=== PATIENT | male | born 1950 | race Caucasian/White ===

== ENCOUNTER 2024-01-19 10:10 | Emergency (ER) | payer OTHER, SELFPAY ==
[2024-01-19 10:14] VITALS: BP 123/93
[2024-01-19 11:22] VITALS: BMI 26.0
--- NOTE | 2024-01-19 12:12 | ED.GENMED ---
History of Present Illness
General
Chief Complaint: Catheter/Tube Problem
Source: patient
Time Seen by Provider: 01/19/24 12:00
Travel History
Have you had any contact with someone who has COVID-19?: No
Do you have any symptoms of coronavirus? Fever > 100 degrees, chills, cough, shortness of breath, sore throat, loss of taste or smell, muscle aches, or headache?: No
History of Present Illness
History of Present Illness:
73-year-old male with past medical history of diverticulitis status post abscess formation and percutaneous drain placement within the right lower abdomen/groin about 4 weeks ago, done at [facility] in [place] presenting to the emergency
department here today for evaluation after last night he believes he may have accidentally pulled the drain after noticing some bloody drainage from the drain insertion site earlier this morning. Notes that the bleeding has subsided but due to some
discomfort in the area decided come to the ER for further evaluation. Patient notes he transitioned his care to this facility and is following with colorectal surgeon, Amanuel Bright, was seen by Dr. Bright about 2 weeks ago and everything with the
drain was going well although he did note that the drain needed to remain in place because there was still some minor leaking. He has a scheduled appointment with interventional radiology here this coming Saturday for a tube check and a follow-up
with Dr. Bright after this. Patient notes that he completed a course of antibiotics a few weeks ago. He denies any fevers, chills, rigors, nausea, vomiting or any other concerns. He does note since the drain has been placed he has had discomfort
to the area but states this past /Saturday the discomfort seem to get a little bit worse.
Past History
Past History
ED Past Medical History: Hypercholesterolemia, Hypothyroidism and Other (Diverticulitis, diverticulosis)
ED Past Surgical History: Bowel resection and Tonsilectomy
Social History
Tobacco: Non-smoker
Alcohol: Occasional
Drug: None
Personal: Single
Living: alone
Review of Systems
Review of Systems
All Other Systems: ROS reviewed and negative except as documented in HPI and ROS
Phy Exam
Physical Exam
Physical Exam:
GENERAL: Alert , in no apparent distress, smiling and pleasant
EYE: clear conjunctiva b/l
HEAD: NCAT
ENT: o/p clr, mmm.
ABDOMEN: Soft, without focal tenderness, no r/g, no cvat, percutaneous drain in place to the right lower quadrant/groin. There is a dressing in place with very small dried blood underneath the dressing pad. No active bleeding. There is very mild
erythema at the drain incision site with some mild tenderness but no overlying warmth or active drainage.
NEUROLOGICAL: Alert and oriented
SKIN: Warm and dry, skin intact.
MUSCULOSKELETAL: No edema, well perfused.
PSYCH: Normal and appropriate interaction.
Scores
Heart Failure Risk
Heart Failure Risk Score: Not Applicable
Heart Score for Chest Pain Patients
STEMI patient?: Not applicable
Withdrawal Assessment of Alcohol
Withdrawal Assessment Completed?: Not applicable
Course
Vital Signs
Initial and Last Documented VS:
Initial Vital Signs
Temp Pulse Resp BP Pulse Ox
98.2 F 87 16 123/93 94
01/19/24 10:14 01/19/24 10:14 01/19/24 10:14 01/19/24 10:14 01/19/24 10:14
Last Documented Vital Signs
Temp Pulse Resp BP Pulse Ox
98.1 F 81 20 123/93 83
01/19/24 11:28 01/19/24 11:28 01/19/24 11:28 01/19/24 10:14 01/19/24 11:28
Registered Dietetic Technician consulted with Physician
Registered Dietetic Technician consulted with physician?: Yes
Name of Physician Consulted: Warren
MDM/Problems Addressed
Differential Diagnosis Includes:
Accidental removal of percutaneous drain, postprocedural pain, postprocedural infection, device malfunction
MDM/Problems Addressed:
73-year-old male present emergency room for evaluation of his percutaneous drain that he had placed 4 weeks ago at an outside facility due to a diverticular abscess. Patient believes he may have accidentally pulled on the drain last night and
noticed some bleeding/oozing from the drain insertion site this morning, seems to have fully resolved although still noting some discomfort. There is a suture in place holding the drain in and when the drain is pulled up on the catheter insertion
remains intact and unable to be removed. There is no longer any drainage. There was some mild erythema noted however I suspect this is more inflammatory as opposed to infectious. There is still very small drainage within the catheter bag.
Overall there does not appear to be any emergent pathologies ongoing. I did advise patient if he has any other concerns to contact his IR team and Dr. Bright tomorrow morning. Also advised patient on return precautions to the emergency department
including worsening pain, fevers or any other concerns he may have. Patient is happy and agreeable with this plan.
*Pulse Oximetry
Patient hypoxic: no
*Critical Care Note
Total Time (30-74mins, 75-104mins- exclusive of procedures): Not Applicable
ED Attending Note
-
Portions of this chart may have been created with voice recognition software.� Occasional wrong word or��sound alike� substitutions may have occurred due to the inherent limitations of voice recognition software.
Discharge Plan
Departure
Patient Disposition: Home (Routine Discharge)
Date of Disposition: 01/19/24
Time of Disposition: 12:12
Patient with high blood pressure during this ER visit?: No
Discharge Problem:
Encounter for fitting and adjustment of non-vascular catheter NEC
Instructions: Abscess Drainage, Percutaneous (Fluoroscopic, Ultrasonic, or CT Guidance)
Referrals:
Kelly Green MD [Family Provider] -
Amanuel Bright MD [Active] -
Interventions
Interventions:
*Risk Screen - Suicide Last Done: 01/19/24 11:24
*General Assessment Last Done: 01/19/24 11:23
*Neglect/Abuse Screening Last Done: 01/19/24 11:24
*ED COVID-19 Vaccine History Last Done: 01/19/24 11:23
RN-Qpyssl-Greocnbgqc Assessment Last Done: 01/19/24 11:24
ED-Male Genitourinary Assessment Last Done: 01/19/24 11:24
== END 2024-01-19 12:20 | disposition home or self-care (01) ==
LOC: EMR 10:10
PROVIDERS: EMERGENCY PHYSICIAN Emergency Medicine; FAMILY PHYSICIAN Family Medicine
DX: Z46.82 Encounter for fitting and adjustment of non-vascular catheter (principal); E78.00 Pure hypercholesterolemia, unspecified; E03.9 Hypothyroidism, unspecified
CPT/HCPCS: 99282

== ENCOUNTER → 2024-01-24 08:00 | Outpatient (REF) | payer OTHER, SELFPAY ==
[2024-01-24 08:30] VITALS: BP 142/77; BP_SYST 67
== END ==
LOC: RADI 08:00
PROVIDERS: ATTENDING PHYSICIAN Surgery; FAMILY PHYSICIAN Family Medicine
DX: Z46.82 Encounter for fitting and adjustment of non-vascular catheter (principal); K57.20 Diverticulitis of large intestine with perforation and abscess without bleeding
CPT/HCPCS: 49423; 75984; C1729; C1769

== ENCOUNTER 2024-02-17 13:43 | Day surgery (SDC) | payer OTHER, SELFPAY ==
[2024-02-17 13:05] VITALS: BMI 28.3
[2024-02-17 13:11] VITALS: BMI 28.3
[2024-02-17 13:12] VITALS: BP 152/99
[2024-02-17 14:50] VITALS: BP 106/78
[2024-02-17 15:00] VITALS: BP 112/89
[2024-02-17 15:15] VITALS: BP 123/99
== END 2024-02-17 15:30 | disposition home or self-care (01) ==
LOC: SDS 13:43
PROVIDERS: ATTENDING PHYSICIAN Surgery
DX: Z12.11 Encounter for screening for malignant neoplasm of colon (principal); K63.89 Other specified diseases of intestine; K57.30 Diverticulosis of large intestine without perforation or abscess without bleeding; K63.5 Polyp of colon
CPT/HCPCS: 45380; 88305

== ENCOUNTER → 2024-02-25 19:02 | Outpatient (REF) | payer OTHER, SELFPAY ==
[2024-02-28 02:45] LABS: HPV, High Risk Not Detected; HPV, High Risk Source Anal
== END ==
LOC: CLAB 19:02
PROVIDERS: ATTENDING PHYSICIAN Surgery
DX: Z86.19 Personal history of other infectious and parasitic diseases (principal)
CPT/HCPCS: 87624; 88112

== ENCOUNTER → 2024-03-19 07:56 | Outpatient (REF) | payer OTHER, SELFPAY | LOC: RAD 07:56 | PROVIDERS: ATTENDING PHYSICIAN Surgery; FAMILY PHYSICIAN Family Medicine | DX: K57.92 Diverticulitis of intestine, part unspecified, without perforation or abscess without bleeding (principal) | CPT/HCPCS: 74177; Q9967 ==

== ENCOUNTER 2024-03-31 06:02 | Inpatient (IN) | payer OTHER, SELFPAY ==
[2024-03-23 08:44] VITALS: BMI 25.1
[2024-03-23 10:06] LABS: Hematocrit 48.7 % (39.0-52.0); Hemoglobin 16.5 g/dL (13.0-18.0); Mean Corp Hgb Conc. 33.9 g/dL (33.0-37.0); Mean Corpuscular Hgb 29.9 pg (27.0-31.0); Mean Corpuscular Volume 88.4 fL (80.0-94.0); Mean Platelet Volume 8.7 fL (7.4-10.4); Platelet Count 354 10^3/uL (130-400); Red Blood Cell Count 5.51 10^6/uL (4.70-6.10); Red Cell Dist. Width 13.3 % (11.5-14.5); White Blood Cell Count 6.1 10^3/uL (4.8-10.8)
[2024-03-23 10:18] LABS: INR 0.99; PT 12.9 Sec (11.4-14.6)
[2024-03-23 10:19] LABS: APTT 27.4 Sec (23.4-35.0)
[2024-03-23 10:30] LABS: ALT (SGPT) 46 U/L (0-50); AST (SGOT) 39 U/L (17-59); Albumin 4.6 g/dl (3.5-5.0); Alkaline Phosphatase 72 U/L (38-126); Blood Urea Nitrogen 19 mg/dl (9-20); Calcium 10.1 mg/dl (8.4-10.2); Carbon Dioxide 26 mmol/L (22-30); Chloride 103 mmol/L (98-107); Estimated Creatinine Clearance 78 ml/min; Glucose 100 mg/dl (70-99); Sodium 139 mmol/L (135-145); Total Bilirubin 0.7 mg/dl (0.2-1.3); Total Protein 7.7 g/dl (6.3-8.2); eGFR > 60.00
[2024-03-23 11:23] LABS: Glycohemoglobin (HgbA1c) 5.4 % (4.0-5.6)
[2024-03-31] VITALS (7 sets, daily range): BP systolic 109–138; BP diastolic 78–96; BMI 25.1
[2024-03-31] MEDS: TYLENOL 1000 MG PO (09:44)
[2024-03-31] MEDS: CELEBREX 200 MG PO (09:44)
[2024-03-31] MEDS: LYRICA 150 MG PO (09:44)
[2024-03-31] MEDS: NORMOSOL-R 1000 IV ×2 (09:44→23:14)
[2024-03-31] MEDS: ENTEREG 12 MG PO (09:44)
[2024-03-31] MEDS: HEPARIN 5000 UNITS SC (10:01)
--- NOTE | 2024-03-31 22:19 | W.IMMPOSTOP ---
Surgical Immed Post Op Note
-
Primary Surgeon: Amanuel Bright MD
Assisting Surgeon: ELIZABETH Steen
Pre-op Diagnosis: recurrent diverticulitis, ventral hernia x2, incisional (umbilical) hernia
Post-op Diagnosis: same
Procedure Performed: Robotic redo sigmoidectomy, splenic flexure takedown mesenteric angiography with ICG, lysis of adhesions greater than 3 hours, flexible sigmoidoscopy, small bowel resection, ventral hernia repair x 2, umbilical hernia repair,
laparoscopic tap block;
Anesthesia Type: General
Specimen / Cultures: Sigmoid, small bowel resection
Estimated Blood Loss: 150 mL
Complications: None
Operative Findings: Entered abdomen with Veress technique at [facility], had a umbilical hernia and to left lower quadrant anterior abdominal wall hernias with omentum incarcerated; omentum was reduced successfully; multiple loops of small bowel
densely adherent to the sigmoid and pelvis; performed arduous lysis of adhesions; loop of ileum densely adherent in the right lower quadrant/right pelvic brim associated with a small abscess; took down lateral attachments from the sigmoid to the
left pelvic brim and left paracolic gutter; the loop that was densely adherent to the abscess did not appear healthy by the time it was completely free, so I tagged this with a 2-0 Vicryl suture for SBR later; attempted to perform a medial to
lateral dissection, however, the planes were significantly distorted due to his previous operation; identified a posterior plane and started to take this towards the sacral promontory, however, made a colotomy in the distal sigmoid; started
dissecting down the right lateral aspect of the pelvis and was able to identify the correct presacral plane and took this down beyond the sacral promontory; had some mild bleeding at this point that was controlled with a Ray-Jay gauze and pressure;
identified the right ureter with ICG and kept this safe from our dissection; continued our rectal mobilization anteriorly down to the anterior flexion; identified gaurang in the rectum from his previous surgery; Dr. Chao performed a flexible
sigmoidoscopy and identified the previous anastomosis at about 17 cm, which was congruent with the visible gaurang; mobilized the left lateral aspect of the rectosigmoid; dense adhesions and scar were discovered, including two clips from a previous
surgery; identified the left ureter with firefly and kept it safe from our dissection; passed sizers and identified our transection point just distal to his previous anastomosis; cleaned up the mesorectum with the vessel sealer, upsized to the RLQ
port to a 12 and stapled and divided with a green load; then performed a splenic flexure takedown and a lateral to medial fashion; adequate reach was confirmed; perfusion was confirmed with firefly and ICG, and then performed a intracorporeal
stapled EEA anastomosis; donuts intact, leak test negative and anastomosis intact on flexible sigmoidoscopy; oversewed the anterior aspect of the anastomosis with 2-0 Vicryl's; repaired the 2 left lower quadrant anterior abdominal wall hernias with
running O V-lock suture; closed the RLQ port with a Fredo Caldwell; then, extracorporealized the loop of small bowel through the umbilical incision and performed a small bowel resection with [id number] stapled anastomosis; closed the mesenteric
defect with 2-0 Vicryl and a crotch stitch with 2-0 Vicryl; performed a laparoscopic tap block; closed to the umbilical hernia with 0 PDS; closed the skin incisions with 4 Monocryl
[2024-03-31 23:15] LABS: % Basophils 0.2 % (0-2); % Immature Granulocytes 0.4 % (0-0.5); % Lymphocytes 4.9 % (20.5-51.1); % Monocytes 5.1 % (1.7-9.3); % Neutrophils 89.4 % (42.2-75.2); Absolute Immature Granulocytes 0.1 10^3/uL (0-0.05); Absolute Lymphocytes 0.6 10^3/uL (1.2-3.4); Absolute Monocytes 0.6 10^3/uL (0.1-0.6); Absolute Neutrophils 11.2 10^3/uL (1.4-6.5); Hematocrit 40.7 % (39.0-52.0); Mean Corp Hgb Conc. 34.4 g/dL (33.0-37.0); Mean Corpuscular Hgb 30.1 pg (27.0-31.0); Mean Corpuscular Volume 87.5 fL (80.0-94.0); Mean Platelet Volume 8.2 fL (7.4-10.4); Nucleated Red Blood Cells % 0 % (-); Platelet Count 275 10^3/uL (130-400); Red Blood Cell Count 4.65 10^6/uL (4.70-6.10); Red Cell Dist. Width 13.8 % (11.5-14.5); White Blood Cell Count 12.5 10^3/uL (4.8-10.8)
[2024-03-31 23:30] LABS: Blood Urea Nitrogen 22 mg/dl (9-20); Calcium 7.5 mg/dl (8.4-10.2); Carbon Dioxide 20 mmol/L (22-30); Chloride 103 mmol/L (98-107); Estimated Creatinine Clearance 64 ml/min; Glucose 158 mg/dl (70-99); Potassium 4.5 mmol/L (3.5-5.1); Sodium 132 mmol/L (135-145); eGFR > 60.00
--- NOTE | 2024-03-31 23:35 | OR.RPT ---
Operative Report
Operative Report
DATE OF OPERATION: 03/31/2024
SURGEON: Amanuel Bright MD
PREOPERATIVE DIAGNOSIS: Recurrent diverticulitis, left lower quadrant ventral hernia x 2, incisional umbilical hernia
POSTOPERATIVE DIAGNOSIS: Same
OPERATION: Robotic sigmoidectomy, take-down of the splenic flexure, adhesiolysis greater than 3 hours, small bowel resection, mesenteric angiography with ICG, flexible sigmoidoscopy, ventral hernia repair x 2, incisional umbilical hernia repair,
laparoscopic TAP block; preoperative cystoscopy with bilateral ureteral stents by Dr. Vargas
ASSISTANTS:
1. Jimenez Chao MD
2. ELIZABETH Steen
ANESTHESIA: General
ESTIMATED BLOOD LOSS: 150 mL
IVF: 4.5 L
URINE OUTPUT: 400 mL
FINDINGS:
1. 2 ventral hernias and 1 incisional umbilical hernia with incarcerated omentum; omentum reduced and hernias was repaired primarily
2. Densely adherent loop of small bowel to small right pelvic brim abscess; performed small bowel resection of this loop, about 30 cm in length
4. Resected about 10 to 12 cm of sigmoid, transected proximally on healthy colon and transected distal to previous anastomosis
3. Performed intracorporeal stapled EEA anastomosis without tension; good perfusion on firefly, donuts intact, leak test negative, anastomosis examined with flexible sigmoidoscopy
SPECIMENS:
1. Sigmoid
2. Small bowel resection
DRAINS: None
COMPLICATIONS: No immediate complications.
INDICATIONS: The patient is a 73-year-old male who was diagnosed with diverticulitis with abscess and treated with IV antibiotics and IR guided drainage, all at an outside hospital. Since then, he recovered well. After a couple of drain studies,
there was no fistula and the IR drain was removed. A repeat CT scan was done which did show residual abscess in the right pelvis as well as a large bladder diverticulum. He has had diverticulitis in the past. After discussion of about the risks
and benefits of operative versus nonoperative management, the patient elected to move forward with a reexcision of the remaining sigmoid colon to decrease the risk of another complicated episode. The operation was discussed with the patient in
detail, including the risks, benefits and alternatives. Risks described included, but not limited to, bleeding, infection, anastomotic leak, damage to nearby structures (i.e.- ureter, bowel, solid organs, including the bladder diverticulum),
incisional hernia, need for ostomy creation, conversion to open, recurrence of diverticulitis, genital and urinary dysfunction, and anesthetic risks. The patient understood and agreed to proceed.
PROCEDURE IN DETAIL: The patient was taken to the operating room and placed on the operating table in supine position. Sequential compression devices were placed bilaterally. General anesthesia was then induced and the patient was intubated without
complication. The patient was then placed in lithotomy position with both arms tucked. The abdomen was then shaved, prepped and draped in a sterile fashion. A time-out was then performed verifying the correct patient, procedure, operative site,
positioning, and special equipment. Urology performed a cystoscopy, placed bilateral ureteral stents, injected each ureter with 2.5mL of ICG and placed a Mcdonough. Anesthesia placed an orogastric tube. Preoperative antibiotics were given. A marking
pen was used to omar out the midline.
An 8 mm incision at Allen's point was made with an 11 blade scalpel. A Veress needle was used to gain abdominal access. After 3 clicks, the insufflation was connected to the Veress needle and the opening pressure was noted to be less than 8 mmHg.
The abdomen was then insufflated to a pressure of 12 mmHg. An 8 mm robotic trocar was then inserted. The robotic camera was advanced and intra-abdominal placement was confirmed. The abdomen was examined. No injuries were noted from port entry or
from the Veress needle. Immediately noted was a ventral hernia at the umbilicus as well as a ventral hernia in the left lower quadrant. A significant amount of omentum was incarcerated in the hernias. The remaining three 8mm robotic ports were
placed under direct visualization in a diagonal fashion from Allen's point to the right lower quadrant, as well as an 8mm assist port in the right lateral mid abdomen, taking care to avoid injury to the right epigastric vessels. The left upper
quadrant port was changed to the air seal port. Then, the patient was placed in 24 degrees Trendelenburg and 10 degrees [id number]. The robot was docked from the patient's right side. From the RLQ to Allen's point, the instruments introduced
were the bipolar grasper, camera, scissors and tip up grasper, respectively.
I began by reducing the omentum from the umbilical hernia and the LLQ ventral hernia. Once the omentum was completely reduced, it was evaluated for hemostasis, which was confirmed. There were 2 fascial defects in the LLQ that were adjacent to each
other, each about 1.5 x 1.5 cm. The fascial defect at the umbilicus was 2 x 2 cm. I decided that I would address the hernias at the end of the case and proceeded. There were densely adherent loops of small bowel at the opening of the pelvis.
With meticulous dissection, I lysed the adhesions from the small bowel to the pelvic brim. I encountered a small abscess cavity at the right pelvic brim which released 2 to 3 cc of purulent fluid. The small bowel that was adjacent to this abscess
did not appear healthy. Because of the inflammation and fibrinous rind, it was difficult to assess whether any true bowel wall injuries occurred. Therefore, I tagged this loop with a 2-0 Vicryl stitch for a small bowel resection later on. Once
all of the small bowel was free from the pelvis, it was swept into the RUQ. I then began taking down adhesions from the sigmoid to the left pelvic wall and LLQ. I mobilized this until I was able to see the left ureter via firefly, which I kept
safe from my dissection. I continued this dissection towards the pelvis along the left pelvic wall. I then grasped the sigmoid with my tip ups and elevated it in order to attempt a medial to lateral dissection. The planes were significantly
distorted due to the previous sigmoidectomy he had had. I identified a plane in the mesorectum and started to take this posteriorly towards the sacral promontory. However, during this part of the dissection, I created a colotomy in the
rectosigmoid colon, confirming that this was the incorrect plane. I then scored the peritoneum overlying the right pelvic brim in order to enter the pelvis from the right side. I was easily able to identify the right ureter with firefly and kept
this safe from my dissection. After dissecting into the pelvis from the right side, I was able to identify the correct presacral plane and took this down past the sacral promontory in the TME plane. I began to take my dissection to the left side
of the pelvis. I was able to identify the left ureter with firefly. I did encounter some bleeding that was close to the left ureter. Therefore, I introduced a Ray-Jay and packed this portion to control the bleeding.I continued this dissection up
the right side of the pelvis towards the anterior aspect. I was able to free up adhesions anteriorly and identify the anterior reflection. Additionally, I was able to identify gaurang from the serosal side of the rectum, confirming the location of
the prior colorectal anastomosis. I looked back at the bleeding on the left side of the pelvis by removing the Ray-Jay and the bleeding had completely stopped. I continued this dissection and was able to identify the correct plane that I had
started laterally. There was dense scar tissue in this area and to hemostatic clips were discovered, likely from his sigmoidectomy 20 years ago.
At this point, my partner, Dr. Chao, performed a flexible sigmoidoscopy and and we confirmed the previous anastomosis to be at the level of the gaurang that are seen on the serosal aspect of the rectosigmoid, which measured about 17 cm from the
anal verge. Dr. Chao then passed EEA sizers in progressively increasing sizes, and the rectum easily accommodated the largest sizer. I dissected a point 1 to 2 cm distal from the prior anastomosis and divided the mesorectum with the vessel
sealer. My retail assistant, Orlando, then upsized the RUQ port to the 12 mm robotic port. I divided the rectum about 2 cm distal to the previous colorectal anastomosis using the green load of the 60 mm robotic stapler. I retracted the sigmoid colon out
of the pelvis. There was no clear SUREKHA pedicle, which means that the SUREKHA was likely taken at the previous surgery. I then turned my attention to taking down the splenic flexure. Due to the scar tissue to the retroperitoneum, I opted for a lateral
to medial splenic flexure takedown. The sigmoid was grasped and retracted towards the right side. The lateral attachments and retroperitoneal attachments were taken down to the level of the splenic flexure. Once I was no longer able to make
progress from this angle, I turned towards the transverse colon. I grasped and retracted the transverse colon caudad and elevated the omentum superiorly. I divided the gastrocolic ligament and entered the lesser sac at the midline of the
transverse colon. I continued taking down the gastrocolic ligament towards the splenic flexure and took down the congenital attachments and the lesser sac. The posterior wall of the stomach was identified and protected. The superior aspect of the
pancreas was also identified and protected. These attachments were taken down to the level of my lateral dissection. There were omental attachments to the mid descending colon, which I also divided with the vessel sealer. At this point, the
splenic flexure was completely mobilized.
For my proximal transection point, I assessed the sigmoid and distal descending colon. There was inflammation and thickening of the sigmoid to a distance of about 6-7 cm from my distal transection point. Therefore, I selected a point about 10 cm
proximal. I elevated the colon at this point with my tip up grasper and divided the mesentery starting medial to my proposed transection point. I then asked anesthesia to inject ICG. My proposed transection point and future colorectal anastomosis
was well-perfused. I elected to proceed with an intracorporeal end-to-end stapled anastomosis with EEA stapler. Orlando made an incision over the umbilical hernia and placed a small wound Francois with a port cap in order to drop the anvil
intracorporeally. Then, a colotomy in the devascularized segment of the sigmoid colon was created using the robotic scissors at a point distal to our proposed proximal transection point. The anvil with a long Prolene suture attached at the tip was
then carefully passed through the colotomy and advanced proximally up the descending colon, with the long Prolene remaining outside of the colon. The colotomy was then closed around the Prolene stitch using a V-Loc running stitch. The robotic
stapler with a blue load was then used to staple and divide the descending colon at our proposed transection point where adequate perfusion was noted on firefly. The specimen was then placed in the left upper quadrant. The Prolene attached to the
anvil was grasped and pulled through the staple line after removing a few gaurang. Unfortunately, before the anvil was pulled through the hole in our staple line, the tip of the anvil disconnected and the anvil fell back into the colon. The tip of
the anvil was passed off. My retail assistant, Orlando, identified the edge of the anvil and milked it forward. I was then able to visualize the tip of the anvil through my staple line hole and grasped this using my suture cut instrument. I pulled the
anvil through the hole in the staple line, which was slightly enlarged while trying to visualize the tip of the anvil. Therefore, I placed 2 interrupted 2-0 Vicryl stitches along the staple line in order to close the staple line hole around the
post of the anvil. I grasped and elevated the anvil and cleaned up the staple line from intervening mesentery and fat. The anvil was seated along the staple line nicely without intervening diverticula or mesentery.
I checked the reach of the proposed anastomosis once more and it was adequate. The operative field was surveyed and hemostasis was ensured. I then had the carbon cutter inflate the bladder with 200 cc of saline to ensure no injury to the bladder or
bladder diverticulum. When the bladder was completely distended, no obvious leak of saline was noted with regular visualization or with firefly. The bladder was allowed to empty. The EEA stapler was passed transanally to the distal staple line.
The pin was extended and was connected with the anvil. After ensuring there was no twist to the mesentery and there was no tension, the EEA stapler was then closed for 1 minute and then fired. Both donuts were intact. A leak test was performed by
filling the pelvis with saline, occluding the proximal lumen and insufflating with the flexible sigmoidoscope, controlled by Dr. Chao. There was no evidence of leak from the anastomosis. Endoscopically, the anastomosis was intact without evidence
of bleeding. The colorectum was desufflated and the flexible sigmoidoscope removed. The anterior aspect of the anastomosis was oversewn with interrupted Lemberts using 2-0 Vicryl's.
At this point, I repaired both of the LLQ hernias with a running 0 v-lock suture. I closed both hernia defects by starting at 1 corner, sewing the hernia defect closed to the other corner, and then securing it by running the stitch back to the
initial corner. I elected to not place mesh in this wound class II case. Then, I had my retail assistant put a locking grasper on the loop of injured small bowel, and another locking grasper on the specimen. The robotic instruments were removed and the
robot was undocked. The Francois cap was removed. The specimen was removed and then the small bowel was eviscerated through our umbilical incision. A small bowel resection was then performed extracorporeally. The injured area of the small bowel,,
which was the area is densely adherent to the pelvic abscess, involved 2 separate points about 25 cm apart. Therefore, 30 cm of small bowel were removed. I created holes at the mesenteric aspect of our proposed transection sites. I then used the
LigaSure to divide the mesentery, connecting each hole and staying close to the bowel. I stapled and divided each a loop of small bowel with the 80 mm SHELLEY stapler. I grasped the corners of each staple line, cut these off with curved Hayes scissors,
and inserted each and of the SHELLEY stapler. The antimesenteric aspect of the small bowel was aligned and the stapler was clamped and fired to create our common channel. The common channel was evaluated and hemostasis was confirmed. The common
enterotomy was then aligned with Allis clamps and stapled and divided with a TA stapler, using a curved Hayes's to remove the excess. The TA staple line was evaluated and hemostasis was confirmed. A crotch stitch with 2-0 Vicryl was placed.
Well-perfused. The hole in the mesentery was closed with 2-0 Vicryl in a running fashion. Only about half of the hole in the mesentery was able to be closed due to the significant thickening of the mesentery. Therefore, the remainder of the hole
of the mesentery was closed with simple interrupted 2-0 Vicryl's. The anastomosis was then reduced. The abdomen was then reinsufflated and a laparoscopic tap block was performed using a total of 30 mL of 0.25% Marcaine mixed with dexamethasone and
injecting in the transverse abdominis plane bilaterally. The right lower quadrant 12mm port was closed with a Fredo-Caldwell and an 0-vicryl. The remaining ports were removed under direct visualization and no bleeding was noted. The midline
umbilical hernia was then closed with 0 PDS in a running fashion. The incisions were then irrigated. The skin incisions were closed with 4-0 Monocryl in a subcuticular running fashion. Another 30 cc of 0.25% Marcaine mixed with dexamethasone were
injected around the incisions. The incisions were dressed with Dermabond.
At this point, the procedure was complete. The patient was awoken and extubated without complication. The right stent was removed, and the left stent and Mcdonough were left in place. All needle, sponge and instrument counts were reported as correct.
The patient tolerated the procedure well and was transferred to the recovery room in stable condition.
Of note, Jimenez Chao MD, retail assistant, was necessary during this procedure for exploratory purposes due to the complexity of the case and performing the flexible sigmoidoscopy and handling the EEA stapler. I was present for the entire duration of
the case.
DICTATED BY: Amanuel Bright MD
[2024-04-01] VITALS (11 sets, daily range): BP systolic 108–138; BP diastolic 68–90; O2SAT 94; BMI 26.5; BMI 25.9
[2024-04-01] MEDS: TORADOL 15 MG IV ×5 (00:47→23:15)
[2024-04-01] MEDS: DILAUDID 0.5 MG IV ×2 (02:37→08:00)
--- NOTE | 2024-04-01 05:13 | PTCARENOTE ---
late entry 0015, received patient to floor, admitted in room 2108, placed on tele, oriented to room and floor routines. Call larios within reach. Mcdonough draining bright red, Report from PACU stated MD aware and will cont to watch urine through the
night. pt tolerating ice chips
[2024-04-01] MEDS: TYLENOL 1000 MG PO ×4 (05:22→23:14)
[2024-04-01] MEDS: SYNTHROID 150 MCG PO (05:22)
[2024-04-01 06:14] LABS: % Immature Granulocytes 0.4 % (0-0.5); % Lymphocytes 6.8 % (20.5-51.1); % Monocytes 7.3 % (1.7-9.3); % Neutrophils 85.5 % (42.2-75.2); Absolute Lymphocytes 0.7 10^3/uL (1.2-3.4); Absolute Monocytes 0.8 10^3/uL (0.1-0.6); Absolute Neutrophils 9.3 10^3/uL (1.4-6.5); Hematocrit 40.1 % (39.0-52.0); Hemoglobin 13.4 g/dL (13.0-18.0); Mean Corp Hgb Conc. 33.4 g/dL (33.0-37.0); Mean Corpuscular Hgb 30.2 pg (27.0-31.0); Mean Corpuscular Volume 90.3 fL (80.0-94.0); Mean Platelet Volume 8.7 fL (7.4-10.4); Nucleated Red Blood Cells % 0 % (-); Platelet Count 280 10^3/uL (130-400); Red Blood Cell Count 4.44 10^6/uL (4.70-6.10); Red Cell Dist. Width 13.9 % (11.5-14.5); White Blood Cell Count 10.8 10^3/uL (4.8-10.8)
[2024-04-01 06:50] LABS: Blood Urea Nitrogen 25 mg/dl (9-20); Carbon Dioxide 20 mmol/L (22-30); Chloride 104 mmol/L (98-107); Estimated Creatinine Clearance 56 ml/min; Glucose 121 mg/dl (70-99); Potassium 4.2 mmol/L (3.5-5.1); Sodium 135 mmol/L (135-145); eGFR > 60.00
[2024-04-01] MEDS: ENTEREG 12 MG PO ×2 (08:01→20:32)
[2024-04-01] MEDS: LIPITOR 10 MG PO (08:01)
--- NOTE | 2024-04-01 08:49 | W.PN.CRS1 ---
Today's Communication / Plan
-
Remaining stent removed, keep Mcdonough
Start clears and Lovenox, add p.o. oxycodone
Appreciate hospitalist for prevention of DT
Assessment/Plan
-
73-year-old male with PMH of recurrent diverticulitis, bladder diverticulum, HTN, HLD, hyperkalemia, hypothyroid, mild COPD (71-apph-whey history, quit 1 year ago but admits to a few cigarettes occasionally) who presents for elective sigmoidectomy
POD 1 robotic redo sigmoidectomy with splenic flexure takedown, TREVON, SBR (30 cm), ventral hernia repair x 3, cystoscopy with bilateral ureteral stent placement
AFVSS, UOP 850
� Advance to clear liquids, DC IV fluids
� Pain control with Tylenol and Toradol, Dilaudid as needed, add p.o. oxycodone
� Will start DVT PPx with Lovenox
� Continue Mcdonough, DC'd remaining stent at bedside
� OOB/IS, appreciate PT
� Will consult hospitalist for history of heavy EtOH use
Subjective Data
Subjective Data
Date of Service: April 01, 2024
No overnight events.
Pain controlled.
Denies nausea/vomiting. Tolerating sips.
-flatus -BMs + Mcdonough (urine is dark fruit punch quality)
Pt is now OOB yet.
Objective Data
-
Vital Signs
Temp Pulse Resp BP Pulse Ox
98.3 F 87 18 113/70 95
04/01/24 03:10 04/01/24 03:10 04/01/24 03:10 04/01/24 03:10 04/01/24 03:10
Intake & Output
03/31/24 04/01/24 04/02/24
06:59 06:59 06:59
Intake Total 725 / 725
Output Total 850 / 850
Balance -125 / -125
Intake:
Oral fluids 0 / 0
IV fluids (Total) 725 / 725
Normosol 200 / 200
IV piggybacks 0 / 0
Output:
Urine, Mcdonough 850 / 850
Lab Results
04/01/24 05:17
04/01/24 05:17
Physical Exam
-
General: No Acute Distress and AOx3
HEENT: Grossly Normal
Abdomen: Soft, Non Distended, Tender (Appropriately tender near incisions), No Guarding and No Rebound
Skin: Warm and Dry
Wound: Dressing in Place (With Dermabond)
[2024-04-01 10:04] LABS: Alcohol None Detected
[2024-04-01 10:12] LABS: Amphetamines Negative (Negative); Barbiturates Negative (Negative); Benzodiazepines Negative (Negative); Buprenorphine Negative (Negative); Cocaine Negative (Negative); Methadone Negative (Negative); Phencyclidine Negative (Negative); Tricyclic Antidepressants Negative (Negative)
[2024-04-01 10:13] LABS: Marijuana Positive (Negative); Methamphetamines Positive (Negative); Opiates Positive (Negative)
--- NOTE | 2024-04-01 10:46 | CM ---
Patient seen bedside.
IA completed.
Patient lives with spouse in a 2 story home with 12 step to enter.
Patient independent prior to admission without assistive devices.
Patient drives.
Had VN with [facility] in the past. would like [facility] if needed.
S/p sigmoidectomy
Clears this am.
Denies home care needs.
PCP: Dr Green
Pharmacy: [address]
Plan: home no needs anticiapted.
[2024-04-01 10:49] LABS: Fentanyl, Urine Positive (Negative)
[2024-04-01] MEDS: FOLVITE 1 MG PO (11:06)
[2024-04-01] MEDS: THIAMINE INJECTION 200 MG IV ×2 (11:06→20:33)
--- NOTE | 2024-04-01 11:11 | CON.HOSP ---
Family Physician
-
Family Physician: Kelly Green
Chief Complaint
-
elective sigmoidectomy for recurrent diverticulitis.
History of Present Illness
HPI: 73-year-old male with PMH of recurrent diverticulitis, bladder diverticulum, HTN, HLD, hypothyroidism, COPD ([id number] history, still smokes a few cigarettes occasionally); p/w elective sigmoidectomy for his recurrent diverticulitis.
He underwent robotic redo sigmoidectomy with splenic flexure takedown, TREVON, SBR (30 cm), ventral hernia repair x 3, cystoscopy with bilateral ureteral stent placement on 03/31/24 by CRS.
Hospitalist service was consulted for his h/o alcohol drinking.
Medical History
Past Medical History
Additional Past Medical History:
recurrent diverticulitis, bladder diverticulum, HTN, HLD, hypothyroidism, COPD (04-cktm-avih history, still smokes a few cigarettes occasionally)
Past Surgical History: Reports Other
Additional Past Surgical History:
robotic redo sigmoidectomy with splenic flexure takedown, TREVON, SBR (30 cm), ventral hernia repair x 3, cystoscopy with bilateral ureteral stent placement on 03/31/24 by CRS.
Social History
Tobacco: Former Smoker (quit 1 year ago)
Alcohol: Occasional
Personal:
Living: With Family
Family History
Family History: Reviewed & Not Pertinent
Allergies / Home Medications
Allergies reflects when Allergies were last updated in [facility].
Home Medications with original date entered in [facility]
Allergy/Medication List:
Allergies
Allergy/AdvReac Type Severity Reaction Status Date / Time
Penicillins Allergy Rash Hives Verified 03/31/24 09:33
Home Medications
cholecalciferol (vitamin D3) 25 mcg (1,000 unit) tablet (Vitamin D3) 25 mcg PO DAILY Supplement 03/26/24
levothyroxine 150 mcg tablet 150 mcg PO DAILY Thyroid 03/26/24
metronidazole 500 mg tablet 500 mg PO PRE OP Infection 03/26/24
multivitamin 1 tab PO DAILY Supplement 03/26/24
neomycin 500 mg tablet 500 mg PO PRE OP BOWEL-PREP 03/26/24
simvastatin 20 mg tablet 20 mg PO DAILY High Cholesterol 03/26/24
sodium sul 1.479 gram-potas ch 0.188 gram-magnes sul 0.225 gram tablet (Sutab) 0 tab PO PRE OP BOWEL-PREP 03/26/24
Review of Systems
-
Constitutional: Reports No Symptoms
Physical Exam
Vital Signs
Vital Signs
Temp Pulse Resp BP Pulse Ox
36.5 C 89 12 116/73 95
04/01/24 07:10 04/01/24 07:10 04/01/24 07:10 04/01/24 07:10 04/01/24 07:10
Physical Exam
General: Well Developed, Well Nourished, No Apparent Distress and Comfortable
HEENT: Normocephalic, Moist Mucous Membranes and Atraumatic
Respiratory: Clear and Non Labored Respirations; Negative Accessory Resp Muscle Use
Cardiac: S1/S2 and Regular Rhythm; Negative Murmur or Rub
Rectal: Deferred by Provider
Genito-urinary: Mcdonough Catheter
Musculoskeletal: No Clubbing, No Cyanosis and No Edema
Skin: Negative Rash
Neuro: Awake and Nonfocal/Grossly Intact
Psych: Calm and Intact Judgement
Laboratory Results
-
Laboratory Results
04/01/24 05:17
04/01/24 05:17
PT 12.9 Sec (11.4-14.6) 03/23/24 08:36
INR 0.99 03/23/24 08:36
APTT 27.4 Sec (23.4-35.0) 03/23/24 08:36
Total Bilirubin 0.7 mg/dl (0.2-1.3) 03/23/24 08:36
AST 39 U/L (17-59) 03/23/24 08:36
ALT 46 U/L (0-50) 03/23/24 08:36
Alkaline Phosphatase 72 U/L (38-126) 03/23/24 08:36
Data Reviewed
-
Lab Data: Labs Reviewed
Impression / Plan
-
HPI: 73-year-old male with PMH of recurrent diverticulitis, bladder diverticulum, HTN, HLD, hypothyroidism, COPD (29-[id number]-pcqb history, still smokes a few cigarettes occasionally); p/w elective sigmoidectomy for his recurrent diverticulitis.
He underwent robotic redo sigmoidectomy with splenic flexure takedown, TREVON, SBR (30 cm), ventral hernia repair x 3, cystoscopy with bilateral ureteral stent placement on 03/31/24 by CRS.
Hospitalist service was consulted for his h/o alcohol drinking.
A/P:
# elective sigmoidectomy for recurrent diverticulitis.
Diet advanced to clear liquids, further advancement per CRS
Pain control with Tylenol and Toradol, Dilaudid as needed, added p.o. oxycodone
DVT PPx with Lovenox SQ
Continue Mcdonough, DC'd remaining stent at bedside
PT OT and OOB
# Alcohol drinking
Pt endorses last drink about 1 week ago, was a social drink
UDS noted positive for opiate, fentanyl, methamphetamine, and marijuana
Alcohol level neg
cover with [facility] for withdrawal, although doubt he would go into withdrawal
can start thiamine/folate
# HTN
not on meds at home
BP stable, observe without antihypertensive
# HLD
cont statin
# hypothyroidism
cont BOAT TESTER Synthroid
# COPD, stable
DVT ppx: Lovenox SQ
FC
DW at bedside
DW RN
[2024-04-01] MEDS: NORMOSOL-R IV (13:40)
[2024-04-01] MEDS: LOVENOX 40 MG SC (17:45)
[2024-04-02] MEDS: NORMOSOL-R IV (02:49)
[2024-04-02 04:22] VITALS: BMI 26.2
[2024-04-02 04:23] VITALS: BP 105/77
[2024-04-02] MEDS: TYLENOL 1000 MG PO ×4 (05:24→23:30)
[2024-04-02] MEDS: SYNTHROID 150 MCG PO (05:24)
[2024-04-02] MEDS: TORADOL 15 MG IV ×4 (05:26→23:29)
[2024-04-02 05:46] VITALS: BMI 26.2
[2024-04-02 07:12] VITALS: BP 127/86
[2024-04-02] MEDS: LIPITOR 10 MG PO (07:33)
[2024-04-02] MEDS: ENTEREG 12 MG PO ×2 (07:33→19:55)
[2024-04-02] MEDS: FOLVITE 1 MG PO (07:34)
[2024-04-02] MEDS: THIAMINE INJECTION 200 MG IV ×2 (07:34→19:55)
--- NOTE | 2024-04-02 08:13 | W.PN.CRS1 ---
Today's Communication / Plan
-
regular diet
d/c hebert
Assessment/Plan
-
73-year-old male with PMH of recurrent diverticulitis, bladder diverticulum, HTN, HLD, hyperkalemia, hypothyroid, mild COPD (63-[id number] history, quit 1 year ago but admits to a few cigarettes occasionally) who presents for elective sigmoidectomy
POD #2 robotic redo sigmoidectomy with splenic flexure takedown, TREVON, SBR (30 cm), ventral hernia repair x 3, cystoscopy with bilateral ureteral stent placement
AFVSS, UOP 850
� Advance diet to regular
� Pain control with Tylenol and Toradol, p.o. oxycodone PRN.
� DVT PPx with Lovenox, TEDS/SCDS in place.
� Discontinue hebert
� OOB/IS, appreciate PT
� Appreciate hospitalist
Subjective Data
Procedure
03/21/2024- Robotic redo sigmoidectomy, splenic flexure takedown mesenteric angiography with ICG, lysis of adhesions greater than 3 hours, flexible sigmoidoscopy, small bowel resection, ventral hernia repair x 2, umbilical hernia repair, laparoscopic
tap block
Subjective Data
Date of Service: April 02, 2024
Patient states that he has no nausea or vomiting. He has flatus. He denies bowel movements yet. He feels a little bloated. He has been out of bed. His pain is controlled.
Objective Data
-
Vital Signs
Temp Pulse Resp BP Pulse Ox
97.7 F 72 17 127/86 98
04/02/24 07:12 04/02/24 07:12 04/02/24 07:12 04/02/24 07:12 04/02/24 07:12
Intake & Output
04/01/24 04/02/24 04/03/24
06:59 06:59 06:59
Intake Total 725 / 725 2730 / 2730
Output Total 850 / 850 1600 / 1600
Balance -125 / -125 1130 / 1130
Intake:
Oral fluids 0 / 0 1380 / 1380
IV fluids (Total) 725 / 725 1350 / 1350
Normosol 200 / 200
IV piggybacks 0 / 0
Output:
Urine, Hebert 850 / 850 1600 / 1600
Physical Exam
-
General: No Acute Distress and AOx3
Abdomen: Soft, Distended (mild) and Non Tender
Skin: Warm and Dry
Incision: Clear, Dry, Intact
[2024-04-02 08:19] LABS: Hematocrit 37.8 % (39.0-52.0); Hemoglobin 12.5 g/dL (13.0-18.0); Mean Corp Hgb Conc. 33.1 g/dL (33.0-37.0); Mean Corpuscular Volume 90.6 fL (80.0-94.0); Mean Platelet Volume 8.7 fL (7.4-10.4); Platelet Count 243 10^3/uL (130-400); Red Blood Cell Count 4.17 10^6/uL (4.70-6.10); Red Cell Dist. Width 13.7 % (11.5-14.5); White Blood Cell Count 9.8 10^3/uL (4.8-10.8)
[2024-04-02 08:45] LABS: Blood Urea Nitrogen 25 mg/dl (9-20); Calcium 8.6 mg/dl (8.4-10.2); Carbon Dioxide 28 mmol/L (22-30); Chloride 103 mmol/L (98-107); Estimated Creatinine Clearance 75 ml/min; Glucose 95 mg/dl (70-99); Sodium 136 mmol/L (135-145); eGFR > 60.00
[2024-04-02 11:31] VITALS: BP 131/92
--- NOTE | 2024-04-02 11:33 | W.PN.HOSP.TC ---
Today's Communication/Plan
-
see A/P
Assessment / Plan
Assessment / Plan
HPI: 73-year-old male with PMH of recurrent diverticulitis, bladder diverticulum, HTN, HLD, hypothyroidism, COPD (13-fwfq-yvjr history, still smokes a few cigarettes occasionally); p/w elective sigmoidectomy for his recurrent diverticulitis.
He underwent robotic redo sigmoidectomy with splenic flexure takedown, TREVON, SBR (30 cm), ventral hernia repair x 3, cystoscopy with bilateral ureteral stent placement on 03/31/24 by CRS.
Hospitalist service was consulted for his h/o alcohol drinking.
A/P:
# elective sigmoidectomy for recurrent diverticulitis.
Pt is doing well post op, he has been walking around with his in the hospital hernandez
Diet advanced to regular and pt tolerated well
Pain control with Tylenol and Toradol, p.o. oxycodone PRN.
DVT PPx with Lovenox, TEDS/SCDS in place.
Mcdonough discontinued
# Alcohol drinking
Pt endorses last drink about 1 week ago, was a social drink
UDS noted positive for opiate, fentanyl, methamphetamine, and marijuana
Alcohol level neg
cover with MSAS for withdrawal, although doubt he would go into withdrawal
can start thiamine/folate while inpatient
# HTN
not on meds at home
BP stable without antihypertensive
# HLD
cont statin
# hypothyroidism
cont JEEP [employer]IVER Synthroid
# COPD, stable
DVT ppx: Lovenox SQ
FC
DW RN
Anticipated Discharge: Within 24 hours
Subjective/Interval History
-
Date of Service: April 02, 2024
Objective Data
-
Labs:
Laboratory Results
04/02/24
07:56
WBC 9.8
Hgb 12.5 L
Hct 37.8 L
Plt Count 243
Sodium 136
Potassium 4.0
Chloride 103
Carbon Dioxide 28
BUN 25 H
Creatinine 0.9
Glucose 95
Calcium 8.6
Vital Signs:
Vital Signs
Temp Pulse Resp BP Pulse Ox
36.7 C 76 18 131/92 92
04/02/24 11:31 04/02/24 11:31 04/02/24 11:31 04/02/24 11:31 04/02/24 11:31
I&O
04/01/24 04/02/24 04/03/24
06:59 06:59 06:59
Intake Total 725 / 725 2730 / 2730
Output Total 850 / 850 1600 / 1600
Balance -125 / -125 1130 / 1130
Review of Systems
-
All other systems: Reviewed and negative
Physical Exam
-
General: Well Developed, Well Nourished, No Apparent Distress, Comfortable and Conversant; Negative Respiratory Distress
HEENT: Normocephalic, Atraumatic, Nose Appears Normal and Ears Appear Normal; Negative Oxygen
Respiratory: Clear to Auscultation and Non Labored Respirations; Negative Accessory Resp Muscle Use
Cardiac: Regular Rhythm and S1/S2
GI: Soft, Nontender, Nondistended and Normal Bowel Sounds
Skin: Warm and Dry
Neuro: Awake, Alert, Oriented, AO x 3 and Nonfocal/Grossly Intact
Psych: Calm and Intact Judgement/Insight
Data Reviewed
-
Labs: Labs Reviewed by me
[2024-04-02 15:46] VITALS: BP 160/96
[2024-04-02 15:49] VITALS: BP 160/96
--- NOTE | 2024-04-02 15:58 | PTOTSP ---
PATIENT FUNCTIONING INDEPENDENTLY ON LEVEL SURFACES WELL ELEVATIONS REQUIRING NO FURTHER ACUTE CARE SKILLED P.T. WILL DISCHARGE FROM P.T. SERVICES.
[2024-04-02] MEDS: LOVENOX 40 MG SC (17:14)
[2024-04-02 18:55] LABS: Hepatitis C Antibody Negative (Negative)
[2024-04-02 23:24] VITALS: BP 135/89
[2024-04-03 04:43] VITALS: BMI 25.5
[2024-04-03] MEDS: TYLENOL 1000 MG PO ×2 (06:08→12:00)
[2024-04-03] MEDS: SYNTHROID 150 MCG PO (06:08)
[2024-04-03] MEDS: TORADOL 15 MG IV ×2 (06:08→12:01)
[2024-04-03 06:30] LABS: Hematocrit 38.3 % (39.0-52.0); Hemoglobin 12.8 g/dL (13.0-18.0); Mean Corp Hgb Conc. 33.4 g/dL (33.0-37.0); Mean Corpuscular Volume 89.7 fL (80.0-94.0); Mean Platelet Volume 9.2 fL (7.4-10.4); Platelet Count 258 10^3/uL (130-400); Red Blood Cell Count 4.27 10^6/uL (4.70-6.10); Red Cell Dist. Width 13.5 % (11.5-14.5); White Blood Cell Count 8.8 10^3/uL (4.8-10.8)
[2024-04-03 07:09] LABS: Blood Urea Nitrogen 20 mg/dl (9-20); Calcium 8.8 mg/dl (8.4-10.2); Carbon Dioxide 22 mmol/L (22-30); Chloride 106 mmol/L (98-107); Estimated Creatinine Clearance 85 ml/min; Glucose 80 mg/dl (70-99); Sodium 135 mmol/L (135-145); eGFR > 60.00
[2024-04-03 07:10] VITALS: BP 163/101
[2024-04-03] MEDS: LIPITOR 10 MG PO (08:40)
[2024-04-03] MEDS: ENTEREG 12 MG PO (08:40)
[2024-04-03] MEDS: FOLVITE 1 MG PO (08:40)
[2024-04-03] MEDS: THIAMINE INJECTION 200 MG IV (08:40)
--- NOTE | 2024-04-03 09:46 | W.PN.CRS1 ---
Today's Communication / Plan
-
doing well with loose stools
possible d/c later today
Assessment/Plan
-
73-year-old male with PMH of recurrent diverticulitis, bladder diverticulum, HTN, HLD, hyperkalemia, hypothyroid, mild COPD (60-[id number]-avkz history, quit 1 year ago but admits to a few cigarettes occasionally) who presents for elective sigmoidectomy
POD #3 robotic redo sigmoidectomy with splenic flexure takedown, TREVON, SBR (30 cm), ventral hernia repair x 3, cystoscopy with bilateral ureteral stent placement
AFVSS, UOP
� Coninue regular diet
� Pain control with Tylenol and Toradol, p.o. oxycodone PRN.
� DVT PPx with Lovenox, TEDS/SCDS in place.
� Urinating post hebert removal
� OOB/IS, appreciate PT
� Appreciate hospitalist
- Possible d/c later today if tolerating a diet and cleared by medicine. All discharge instructions discussed with patient including medications, activity levels and diet. All questions answered.
Subjective Data
Procedure
03/21/2024- Robotic redo sigmoidectomy, splenic flexure takedown mesenteric angiography with ICG, lysis of adhesions greater than 3 hours, flexible sigmoidoscopy, small bowel resection, ventral hernia repair x 2, umbilical hernia repair, laparoscopic
tap block
Subjective Data
Date of Service: April 03, 2024
Patient states he has flatus. He had some loose stools overnight. He tolerated a diet. He denies nausea or vomiting. He has no issues vomiting.
Objective Data
-
Vital Signs
Temp Pulse Resp BP Pulse Ox
97.8 F 77 16 163/101 98
04/03/24 07:10 04/03/24 07:10 04/03/24 07:10 04/03/24 07:10 04/03/24 08:00
Intake & Output
04/02/24 04/03/24 04/04/24
06:59 06:59 06:59
Intake Total 2730 / 2730 1919
Output Total 1600 / 1600 425 / 425
Balance 1130 / 1130 1495 / 1495
Intake:
Oral fluids 1380 / 1380 1919 / 1919
IV fluids (Total) 1350 / 1350
Output:
Urine, Hebert 1600 / 1600 200 / 200
Urine, Voided 225 / 225
Lab Results
04/03/24 04:26
04/03/24 04:26
Physical Exam
-
General: No Acute Distress and AOx3
Abdomen: Soft, Non Distended and Non Tender
Skin: Warm and Dry
Incision: Clear, Dry, Intact
--- NOTE | 2024-04-03 12:13 | W.PN.HOSP.TC ---
Today's Communication/Plan
-
see A/P
Assessment / Plan
Assessment / Plan
HPI: 73-year-old male with PMH of recurrent diverticulitis, bladder diverticulum, HTN, HLD, hypothyroidism, COPD (30-[id number]-ffhf history, still smokes a few cigarettes occasionally); p/w elective sigmoidectomy for his recurrent diverticulitis.
He underwent robotic redo sigmoidectomy with splenic flexure takedown, TREVON, SBR (30 cm), ventral hernia repair x 3, cystoscopy with bilateral ureteral stent placement on 03/31/24 by CRS.
Hospitalist service was consulted for his h/o alcohol drinking.
A/P:
# elective sigmoidectomy for recurrent diverticulitis.
Pt is doing well post op, he has been walking around with his in the hospital hernandez
Diet advanced to regular and pt tolerated well
Pain control with Tylenol and Toradol, p.o. oxycodone PRN.
DVT PPx with Lovenox, TEDS/SCDS in place.
Mcdonough discontinued
# Alcohol drinking
Pt endorses last drink about 1 week ago, was a social drink
UDS noted positive for opiate, fentanyl, methamphetamine, and marijuana
Alcohol level neg
cover with MSAS for withdrawal, although doubt he would go into withdrawal
can start thiamine/folate while inpatient
# HTN
not on meds at home
start Norvasc 2.5 mg daily for better BP control. Pt and informed of this.
# HLD
cont statin
# hypothyroidism
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
# COPD, stable
DVT ppx: Lovenox SQ
FC
DW RN / CRS service
Anticipated Discharge: Today
Subjective/Interval History
-
Date of Service: April 03, 2024
Objective Data
-
Labs:
Laboratory Results
04/03/24
04:26
WBC 8.8
Hgb 12.8 L
Hct 38.3 L
Plt Count 258
Sodium 135
Potassium 4.0
Chloride 106
Carbon Dioxide 22
BUN 20
Creatinine 0.8
Glucose 80
Calcium 8.8
Vital Signs:
Vital Signs
Temp Pulse Resp BP Pulse Ox
36.6 C 77 16 163/101 98
04/03/24 07:10 04/03/24 07:10 04/03/24 07:10 04/03/24 07:10 04/03/24 08:00
I&O
04/02/24 04/03/24 04/04/24
06:59 06:59 06:59
Intake Total 2730 / 2730 1920 / 1920
Output Total 1600 / 1600 425 / 425
Balance 1130 / 1130 1495 / 1495
Review of Systems
-
All other systems: Reviewed and negative
Physical Exam
-
General: Well Developed, Well Nourished, No Apparent Distress, Comfortable and Conversant; Negative Respiratory Distress
HEENT: Normocephalic, Atraumatic, Nose Appears Normal and Ears Appear Normal; Negative Oxygen
Respiratory: Clear to Auscultation and Non Labored Respirations; Negative Accessory Resp Muscle Use
Cardiac: Regular Rhythm and S1/S2
GI: Soft, Nontender, Nondistended and Normal Bowel Sounds
Skin: Warm and Dry
Neuro: Awake, Alert, Oriented, AO x 3 and Nonfocal/Grossly Intact
Psych: Calm and Intact Judgement/Insight
Data Reviewed
-
Labs: Labs Reviewed by me
--- NOTE | 2024-04-03 12:20 | W.PN.UPDATE ---
Update Note
Progress Note Update
Spoke with RN. Patient doing well. He tolerated a low residue diet meal and would like to go home.
--- NOTE | 2024-04-03 12:42 | W.PN.UPDATE ---
Update Note
Progress Note Update
I spoke with RN and Dr. Puga. Patient would like to be discharged today. Okay with hospitalist.
--- NOTE | 2024-04-03 12:43 | W.DS.TRANS ---
DC Summary - Laboratory Assistant
-
Discharge Instructions:
Sleep Apnea Risk Low
Discharge Diagnosis/Procedures Robotic redo sigmoidectomy, splenic flexure
takedown mesenteric angiography with ICG, lysis
of adhesions greater than 3 hours, flexible
sigmoidoscopy, small bowel resection, ventral
hernia repair x 2, umbilical hernia repair,
laparoscopic tap block
Diet Regular
Activity No strenuous activity
Additional Activity No lifting over 10lbs (gallon of milk)
Driving Restrictions No driving while using narcotics.
Bathing Restrictions OK to Shower
Wound Care Allow glue to naturally fall off. Do not pick at
incisions.
Instructions:
Stand-Alone Forms:
Changes to Home Medications: Yes
Discharge Medications:
DC Medications w/original date entered in [facility]
cholecalciferol (vitamin D3) 25 mcg (1,000 unit) tablet (Vitamin D3) 25 mcg PO DAILY Supplement 03/26/24
levothyroxine 150 mcg tablet 150 mcg PO DAILY Thyroid 03/26/24
multivitamin 1 tab PO DAILY Supplement 03/26/24
simvastatin 20 mg tablet 20 mg PO DAILY High Cholesterol 03/26/24
amlodipine 2.5 mg tablet (Norvasc) 2.5 mg PO DAILY #30 tabs 04/03/24
tramadol 50 mg tablet 50 mg PO Q6H PRN Pain #20 tabs 04/03/24
Home Medication Changes
amlodipine 2.5 mg tablet (Norvasc) 2.5 mg PO DAILY #30 tabs 04/03/24
tramadol 50 mg tablet 50 mg PO Q6H PRN Pain #20 tabs 04/03/24
Pending Results: Yes
Additional Pending Results:
OR pathology
--- NOTE | 2024-04-03 12:44 | W.DCSUMMARY ---
Discharge Summary
Discharge Data
Date of Admission: 03/31/24
Date of Discharge: 04/03/24
-
Pending Results: Yes
Additional Pending Results:
OR pathology
Hospital Course
73-year-old male presented for an elective robotic redo sigmoidectomy, small bowel resection, ventral hernia repair x 2 and umbilical hernia repair for recurrent diverticulitis, ventral hernia x 2, and incisional umbilical hernia by Dr. Vital
Deangelo. The patient tolerated the procedure well and was brought to the medical surgical floor postoperatively. The following day he was out of bed. He was started on a clear liquid diet. His pain was controlled. On postop day 2 his Mcdonough was
removed and he voided without difficulty. His diet was advanced to regular. He tolerated a diet and had bowel function. On postop day 3 it was noted the patient had hypertension. He was started on Norvasc 2.5 mg daily by the hospitalist. It was
determined the patient could be discharged home. All discharge instructions were discussed with the patient including medications activity levels and follow-up. All questions were answered. OR pathology was pending at the time of discharge.
Discharge Plan
-
Patient Disposition: Home (Routine Discharge)
Discharge Diagnosis/Procedures: Robotic redo sigmoidectomy, splenic flexure takedown mesenteric angiography with ICG, lysis of adhesions greater than 3 hours, flexible sigmoidoscopy, small bowel resection, ventral hernia repair x 2, umbilical hernia
repair, laparoscopic tap block
Diet: Regular
Activity: No strenuous activity
Additional Activity: No lifting over 10lbs (gallon of milk)
Driving Restrictions: No driving while using narcotics.
Bathing Restrictions: OK to Shower
Wound Care: Allow glue to naturally fall off. Do not pick at incisions.
Referrals:
Kelly Green MD [Family Provider] - in one week (To discuss your blood pressure.)
Amanuel Bright MD [Active] - 04/16/24 9:45 am
Additional Discharge Medication Instructions: Tylenol or Ibuprofen as needed for pain. Maximum dose of Tylenol is 4,000mg in 24 hours. Maximum dose of Ibuprofen is 3,200mg in 24 hours.
Continue Norvasc 2.5 mg daily for better BP control. Defer further dose adjustment to your PCP
Prescriptions:
New
tramadol 50 mg tablet
50 mg PO Q6H PRN (Reason: Pain) Qty: 20 0RF
amlodipine [Norvasc] 2.5 mg tablet
2.5 mg PO DAILY Qty: 30 0RF
Continued
multivitamin Tablet
1 tab PO DAILY
simvastatin 20 mg Tablet
20 mg PO DAILY
levothyroxine 150 mcg Tablet
150 mcg PO DAILY
cholecalciferol (vitamin D3) [Vitamin D3] 25 mcg (1,000 unit) Tablet
25 mcg PO DAILY
Discontinued
metronidazole [Flagyl] 500 mg Tablet
500 mg PO PRE OP
neomycin 500 mg Tablet
500 mg PO PRE OP
Sutab 1.479-0.188- 0.225 gram Tablet
0 tab PO PRE OP
Discharge Orders:
Discharge Patient (As Directed); Ordered 04/03/24
Ordered By: Shyla Morelos
Discharge Date and Time
Print Language: PARAGUAYAN
[2024-04-03 12:46] VITALS: BP 171/97
--- NOTE | 2024-04-03 17:52 | CM ---
Patient has been medically cleared for discharge to home with no additional skilled services. Patient arranged for transport home.
== END 2024-04-03 13:12 | disposition home or self-care (01) | DRG 330 ==
LOC: 2 SOUTH 06:02
PROVIDERS: Specialist; ADMITTING PHYSICIAN Surgery; CONSULT PHYSICIAN Internal Medicine; FAMILY PHYSICIAN Family Medicine
PROC: 4A1BXSH Monitoring of Gastrointestinal Vascular Perfusion using Indocyanine Green Dye, External Approach (ICD-10-PCS; 2024-03-31)
PROC: 0DB84ZZ Excision of Small Intestine, Percutaneous Endoscopic Approach (ICD-10-PCS; 2024-03-31)
PROC: 0DN84ZZ Release Small Intestine, Percutaneous Endoscopic Approach (ICD-10-PCS; 2024-03-31)
PROC: 3E0T33Z Introduction of Anti-inflammatory into Peripheral Nerves and Plexi, Percutaneous Approach (ICD-10-PCS; 2024-03-31)
PROC: 0WQF4ZZ Repair Abdominal Wall, Percutaneous Endoscopic Approach (ICD-10-PCS; 2024-03-31)
PROC: 0T788DZ Dilation of Bilateral Ureters with Intraluminal Device, Via Natural or Artificial Opening Endoscopic (ICD-10-PCS; 2024-03-31)
PROC: 3E0T3BZ Introduction of Anesthetic Agent into Peripheral Nerves and Plexi, Percutaneous Approach (ICD-10-PCS; 2024-03-31)
PROC: 8E0W4CZ Robotic Assisted Procedure of Trunk Region, Percutaneous Endoscopic Approach (ICD-10-PCS; 2024-03-31)
PROC: 0DTN4ZZ Resection of Sigmoid Colon, Percutaneous Endoscopic Approach (ICD-10-PCS; 2024-03-31)
PROC: 0DJD8ZZ Inspection of Lower Intestinal Tract, Via Natural or Artificial Opening Endoscopic (ICD-10-PCS; 2024-03-31)
DX: K57.20 Diverticulitis of large intestine with perforation and abscess without bleeding (principal); K42.0 Umbilical hernia with obstruction, without gangrene; N13.30 Unspecified hydronephrosis; N32.3 Diverticulum of bladder; I10 Essential (primary) hypertension; E78.5 Hyperlipidemia, unspecified; E03.9 Hypothyroidism, unspecified; F19.90 Other psychoactive substance use, unspecified, uncomplicated; F10.90 Alcohol use, unspecified, uncomplicated; J44.9 Chronic obstructive pulmonary disease, unspecified; F17.210 Nicotine dependence, cigarettes, uncomplicated; K66.0 Peritoneal adhesions (postprocedural) (postinfection); N40.0 Benign prostatic hyperplasia without lower urinary tract symptoms; K43.9 Ventral hernia without obstruction or gangrene; E87.5 Hyperkalemia; Z79.890 Hormone replacement therapy; Z88.0 Allergy status to penicillin
CPT/HCPCS: 88307; 36415; 71046; 80048; 80053; 80306; 80307; 82077; 83036; 85025; 85027; 85610; 85730; 86803; 86850; 86900; 86901; 93005; 97116; 97162; 99406; A4300; J1335